=== PATIENT | male | born 1970 | race Caucasian/White ===

== ENCOUNTER 2021-01-21 09:23 | Inpatient (IN) ==
[2021-01-21] MEDS ORDERED: Isovue-370 500 ML BOTTLE IVP ONE ×2 (09:33→09:37)
[2021-01-21] MEDS ORDERED: *HR* FentaNYL (PF) 100 MCG/2 ML VIAL IVP ONE ×2 (09:33→12:41)
[2021-01-21] MEDS ORDERED: Ondansetron 4 MG/2 ML VIAL IVP ONE (09:33)
[2021-01-21 09:53] LABS: Basophils % 0.3 %; Eosinophils % 0.3 %; Hematocrit 39.1 % (37.5-50.1); Hemoglobin 13.6 g/dL (12.9-16.9); Immature Granulocytes % 0.4 % (0-4); Lymphocytes # 1.7 K/mcL (0.6-4.6); Lymphocytes % 13.9 %; Mean Corpuscular HGB Conc 34.8 g/dL (31.6-35.5); Mean Corpuscular Hemoglobin 30.4 pg (28.0-33.3); Mean Corpuscular Volume 87.3 fL (83.0-100.0); Mean Platelet Volume 9.4 fL (9.4-12.4); Monocytes # 0.3 K/mcL (0.0-1.3); Monocytes % 2.5 %; Neutrophils # 9.8 K/mcL (1.6-8.9); Platelet Count 275 K/mcL (140-400); Red Blood Count 4.48 M/mcL (4.19-5.50); Red Cell Distribution Width 13.7 % (11.5-14.5); Segmented Neutrophils % 82.6 %; White Blood Count 11.9 K/mcL (4.3-11.1)
[2021-01-21] MEDS ORDERED: Haloperidol Lactate 5 MG/ML VIAL IVP ONE (10:00)
[2021-01-21 10:08] LABS: Alanine Aminotransferase 27 Units/L (7-52); Albumin 4.1 g/dL (3.5-5.7); Albumin/Globulin Ratio 1.1 (1.1-2.2); Alkaline Phosphatase 46 Units/L (34-104); Aspartate Amino Transferase 25 Units/L (13-39); BUN/Creatinine Ratio 17 (6-26); Bilirubin,Total 0.5 mg/dL (0.3-1.0); Blood Urea Nitrogen 17 mg/dL (6-20); Calcium 9.6 mg/dL (8.6-10.3); Carbon Dioxide 27 mEq/L (23-29); Chloride 102 mEq/L (98-107); Globulin 3.7 g/dL (2.4-3.5); Glucose 231 mg/dL (70-105); Lipase 67 Units/L (11-82); Osmolality,Calculated 295 (280-300); Potassium 2.7 mEq/L (3.5-5.1); Sodium 138 mEq/L (136-145); Total Protein 7.8 g/dL (6.4-8.9); eGFR For African Americans > 60 (> 60); eGFR For Non-African Americans > 60 (> 60)
[2021-01-21 11:41] LABS: Bilirubin,Urine Negative (Negative); Blood,Urine Negative (Negative); Clarity,Urine Clear (Clear); Color,Urine Light-Yellow (Yellow); Glucose,Urine (UA) 300 mg/dL (Normal); Ketones,Urine Negative (Negative); Leukocyte Esterase,Urine Negative (Negative); Mucus,Urine Few per lpf (None-Few); Nitrite,Urine Negative (Negative); PH,Urine 6.5 pH Units (5.0-8.0); Protein,Urine Negative (Neg-Trace); RBC,Urine 0-3 per hpf (0-3); Specific Gravity,Urine > 1.030 (1.010-1.025); Urobilinogen,Urine Normal (Normal); WBC,Urine 0-3 per hpf (0-3)
[2021-01-21] MEDS ORDERED: Potassium Effervescent 25 MEQ TABLET.EFF PO ONE (12:12)
[2021-01-21] MEDS ORDERED: 0.9 % Sodium Chloride 1,000 ML IVC SCH (12:45)
[2021-01-21 12:59] LABS: Magnesium 1.9 mg/dL (1.6-2.6)
[2021-01-21 13:00] LABS: Troponin I < 0.03 ng/mL (< 0.04)
[2021-01-21] MEDS ORDERED: Bisacodyl 10 MG RECTAL SUPPOSITORY RC PRN (13:28)
[2021-01-21] MEDS ORDERED: Naloxone 0.4 MG/ML INJ IVP PRN (13:33)
[2021-01-21] MEDS ORDERED: 0.9 % Sodium Chloride 2,000 ML IVC SCH (13:38)
[2021-01-21] MEDS ORDERED: Dextrose Gel 15 GM/37.5 ML TUBE PO PRN ×2 (13:43)
[2021-01-21] MEDS ORDERED: *HR* Dextrose 50 % in Water (Syg) 50 ML SYRINGE IVP PRN (13:43)
[2021-01-21] MEDS ORDERED: D5% in Water 1,000 ML IVC PRN (13:43)
[2021-01-21] MEDS: MetroNIDAZOLE 500 MG/100 ML 500 MG/100 ML BAG IVPB SCH (15:21)
[2021-01-21 17:01] LABS: Estimated Average Glucose 97 mg/dl
[2021-01-21] MEDS: Ketorolac 15 MG/ML VIAL IVP SCH (17:26)
[2021-01-21] MEDS: *HR* Heparin 5,000 UNIT/ML VIAL SQ SCH (17:26)
[2021-01-21] MEDS: Insulin LISPRO 300 UNITS/3 ML VIAL SUBQ SCH (17:28)
[2021-01-21 18:58] LABS: BUN/Creatinine Ratio 21 (6-26); Blood Urea Nitrogen 18 mg/dL (6-20); Calcium 9.8 mg/dL (8.6-10.3); Carbon Dioxide 22 mEq/L (23-29); Chloride 103 mEq/L (98-107); Glucose 176 mg/dL (70-105); Osmolality,Calculated 284 (280-300); Potassium 4.3 mEq/L (3.5-5.1); Sodium 134 mEq/L (136-145); eGFR For African Americans > 60 (> 60); eGFR For Non-African Americans > 60 (> 60)
[2021-01-21] MEDS: 0.9 % Sodium Chloride 2,000 ML IVC SCH (19:02)
[2021-01-22] MEDS: MetroNIDAZOLE 500 MG/100 ML 500 MG/100 ML BAG IVPB SCH ×2 (00:12→07:55)
[2021-01-22] MEDS: Ketorolac 15 MG/ML VIAL IVP SCH ×4 (00:16→16:57)
[2021-01-22] MEDS: Insulin LISPRO 300 UNITS/3 ML VIAL SUBQ SCH ×4 (00:19→17:52)
[2021-01-22 03:32] LABS: Basophils % 0.1 %; Hematocrit 46.1 % (37.5-50.1); Immature Granulocytes % 0.5 % (0-4); Lymphocytes # 1.9 K/mcL (0.6-4.6); Lymphocytes % 8.8 %; Mean Corpuscular HGB Conc 33.4 g/dL (31.6-35.5); Mean Corpuscular Hemoglobin 28.9 pg (28.0-33.3); Mean Corpuscular Volume 86.7 fL (83.0-100.0); Mean Platelet Volume 9.7 fL (9.4-12.4); Monocytes # 0.9 K/mcL (0.0-1.3); Monocytes % 4.2 %; Neutrophils # 18.2 K/mcL (1.6-8.9); Platelet Count 346 K/mcL (140-400); Red Blood Count 5.32 M/mcL (4.19-5.50); Segmented Neutrophils % 86.4 %; White Blood Count 21.1 K/mcL (4.3-11.1)
[2021-01-22 03:33] LABS: Hemoglobin 15.4 g/dL (12.9-16.9)
[2021-01-22 03:54] LABS: BUN/Creatinine Ratio 20 (6-26); Blood Urea Nitrogen 25 mg/dL (6-20); Calcium 9.9 mg/dL (8.6-10.3); Carbon Dioxide 22 mEq/L (23-29); Chloride 102 mEq/L (98-107); Glucose 139 mg/dL (70-105); Magnesium 2.3 mg/dL (1.6-2.6); Osmolality,Calculated 287 (280-300); Potassium 4.1 mEq/L (3.5-5.1); Sodium 135 mEq/L (136-145); eGFR For African Americans > 60 (> 60); eGFR For Non-African Americans > 60 (> 60)
[2021-01-22] MEDS: *HR* Heparin 5,000 UNIT/ML VIAL SQ SCH ×2 (05:50→17:01)
[2021-01-22] MEDS: 0.9 % Sodium Chloride 2,000 ML IVC SCH (05:53)
[2021-01-22] MEDS: Pantoprazole 40 MG VIAL IVP SCH (07:56)
[2021-01-22 09:33] LABS: Hemoglobin 14.7 g/dL (12.9-16.9); Mean Platelet Volume 9.4 fL (9.4-12.4); Red Cell Distribution Width 14.3 % (11.5-14.5)
[2021-01-22 09:34] LABS: Hematocrit 42.9 % (37.5-50.1); Mean Corpuscular HGB Conc 34.3 g/dL (31.6-35.5); Mean Corpuscular Hemoglobin 29.6 pg (28.0-33.3); Mean Corpuscular Volume 86.5 fL (83.0-100.0); Platelet Count 306 K/mcL (140-400); Red Blood Count 4.96 M/mcL (4.19-5.50); White Blood Count 24.8 K/mcL (4.3-11.1)
[2021-01-22 10:20] LABS: BUN/Creatinine Ratio 22 (6-26); Blood Urea Nitrogen 30 mg/dL (6-20); Calcium 9.8 mg/dL (8.6-10.3); Carbon Dioxide 24 mEq/L (23-29); Chloride 103 mEq/L (98-107); Glucose 119 mg/dL (70-105); Osmolality,Calculated 289 (280-300); Potassium 4.5 mEq/L (3.5-5.1); Sodium 136 mEq/L (136-145); eGFR For African Americans > 60 (> 60); eGFR For Non-African Americans 57 (> 60)
[2021-01-22] MEDS ORDERED: Vancomycin 1,250 MG/262.5 ML IV.SOLN IVPB SCH (14:00)
[2021-01-22] MEDS: amLODIPine 5 MG TABLET PO SCH (15:47)
[2021-01-22] MEDS: Piperacillin/Tazobactam 3.375 GM in 0.9 % Sodium Chloride Mini Bag 100 ML IVPB SCH ×2 (15:48→23:13)
[2021-01-22] MEDS: *HR* Buprenorphine HCl 8 MG TAB.SUBL SL SCH (16:57)
[2021-01-22] MEDS ORDERED: Ketorolac 30 MG/ML VIAL IVP ONE (20:13)
[2021-01-23] MEDS: Insulin LISPRO 300 UNITS/3 ML VIAL SUBQ SCH ×4 (00:34→16:22)
[2021-01-23] MEDS ORDERED: Ketorolac 15 MG/ML VIAL IVP ONE (05:52)
[2021-01-23 05:59] LABS: Hematocrit 37.6 % (37.5-50.1); Mean Corpuscular HGB Conc 32.4 g/dL (31.6-35.5); Mean Corpuscular Hemoglobin 28.9 pg (28.0-33.3); Mean Corpuscular Volume 89.1 fL (83.0-100.0); Mean Platelet Volume 9.7 fL (9.4-12.4); Platelet Count 219 K/mcL (140-400); Red Blood Count 4.22 M/mcL (4.19-5.50); Red Cell Distribution Width 14.6 % (11.5-14.5); White Blood Count 20.1 K/mcL (4.3-11.1)
[2021-01-23] MEDS: 0.9 % Sodium Chloride 2,000 ML IVC SCH (06:00)
[2021-01-23] MEDS: Ondansetron 4 MG/2 ML VIAL IVP PRN ×2 (06:00→17:56)
[2021-01-23 06:05] LABS: Hemoglobin 12.2 g/dL (12.9-16.9)
[2021-01-23 06:18] LABS: Alanine Aminotransferase 14 Units/L (7-52); Albumin 3.7 g/dL (3.5-5.7); Albumin/Globulin Ratio 1.2 (1.1-2.2); Alkaline Phosphatase 32 Units/L (34-104); Aspartate Amino Transferase 14 Units/L (13-39); BUN/Creatinine Ratio 31 (6-26); Bilirubin,Total 1.1 mg/dL (0.3-1.0); Blood Urea Nitrogen 38 mg/dL (6-20); Calcium 9.2 mg/dL (8.6-10.3); Carbon Dioxide 25 mEq/L (23-29); Chloride 104 mEq/L (98-107); Glucose 99 mg/dL (70-105); Osmolality,Calculated 293 (280-300); Potassium 4.2 mEq/L (3.5-5.1); Sodium 137 mEq/L (136-145); Total Protein 6.7 g/dL (6.4-8.9); eGFR For African Americans > 60 (> 60); eGFR For Non-African Americans > 60 (> 60)
[2021-01-23] MEDS ORDERED: *HR* Promethazine 25 MG/ML VIAL IM ONE (08:44)
[2021-01-23] MEDS: Pantoprazole 40 MG VIAL IVP SCH (08:54)
[2021-01-23] MEDS ORDERED: Tetracaine/Benzocaine/Butamben 1 SPRAY AEROSOL MM ONE (09:58)
[2021-01-23] MEDS: Piperacillin/Tazobactam 3.375 GM in 0.9 % Sodium Chloride Mini Bag 100 ML IVPB SCH ×2 (10:06→16:21)
[2021-01-23] MEDS: *HR* Buprenorphine HCl 8 MG TAB.SUBL SL SCH (10:06)
[2021-01-23] MEDS: MetroNIDAZOLE 500 MG/100 ML 500 MG/100 ML BAG IVPB SCH ×2 (10:06→16:21)
[2021-01-23] MEDS: amLODIPine 5 MG TABLET PO SCH (10:06)
[2021-01-23] MEDS: 0.9 % Sodium Chloride 1,000 ML IVC SCH ×2 (10:07→23:10)
[2021-01-23] MEDS: *HR* Heparin 5,000 UNIT/ML VIAL SQ SCH (16:21)
[2021-01-24] MEDS: MetroNIDAZOLE 500 MG/100 ML 500 MG/100 ML BAG IVPB SCH ×3 (00:15→14:52)
[2021-01-24] MEDS: Piperacillin/Tazobactam 3.375 GM in 0.9 % Sodium Chloride Mini Bag 100 ML IVPB SCH ×4 (00:16→23:54)
[2021-01-24] MEDS: Insulin LISPRO 300 UNITS/3 ML VIAL SUBQ SCH ×4 (03:15→16:18)
[2021-01-24] MEDS: *HR* Heparin 5,000 UNIT/ML VIAL SQ SCH ×2 (05:23→16:45)
[2021-01-24 06:50] LABS: Hemoglobin 11.4 g/dL (12.9-16.9); Mean Corpuscular HGB Conc 32.6 g/dL (31.6-35.5); Mean Corpuscular Hemoglobin 29.5 pg (28.0-33.3); Mean Corpuscular Volume 90.7 fL (83.0-100.0); Mean Platelet Volume 9.5 fL (9.4-12.4); Platelet Count 198 K/mcL (140-400); Red Blood Count 3.86 M/mcL (4.19-5.50); Red Cell Distribution Width 14.6 % (11.5-14.5); White Blood Count 14.5 K/mcL (4.3-11.1)
[2021-01-24 07:03] LABS: Magnesium 2.2 mg/dL (1.6-2.6); Phosphorous 2.9 mg/dL (2.7-4.5)
[2021-01-24 07:09] LABS: Alanine Aminotransferase 14 Units/L (7-52); Albumin 3.7 g/dL (3.5-5.7); Albumin/Globulin Ratio 1.2 (1.1-2.2); Alkaline Phosphatase 30 Units/L (34-104); Aspartate Amino Transferase 14 Units/L (13-39); BUN/Creatinine Ratio 33 (6-26); Bilirubin,Total 0.6 mg/dL (0.3-1.0); Blood Urea Nitrogen 32 mg/dL (6-20); Calcium 8.9 mg/dL (8.6-10.3); Carbon Dioxide 26 mEq/L (23-29); Chloride 107 mEq/L (98-107); Glucose 90 mg/dL (70-105); Osmolality,Calculated 296 (280-300); Potassium 3.6 mEq/L (3.5-5.1); Sodium 140 mEq/L (136-145); Total Protein 6.7 g/dL (6.4-8.9); eGFR For African Americans > 60 (> 60); eGFR For Non-African Americans > 60 (> 60)
[2021-01-24] MEDS: Pantoprazole 40 MG VIAL IVP SCH (07:56)
[2021-01-24] MEDS: amLODIPine 5 MG TABLET PO SCH ×2 (07:57→10:46)
[2021-01-24] MEDS: *HR* Buprenorphine HCl 8 MG TAB.SUBL SL SCH (14:52)
[2021-01-24] MEDS: 0.9 % Sodium Chloride 1,000 ML IVC SCH (14:52)
[2021-01-24] MEDS: Ondansetron 4 MG/2 ML VIAL IVP PRN (22:13)
[2021-01-25] MEDS: Insulin LISPRO 300 UNITS/3 ML VIAL SUBQ SCH ×3 (00:04→14:59)
[2021-01-25] MEDS: MetroNIDAZOLE 500 MG/100 ML 500 MG/100 ML BAG IVPB SCH ×2 (00:04→09:31)
[2021-01-25 01:23] LABS: Basophils % 0.2 %; Eosinophils # 0.2 K/mcL (0.0-0.6); Eosinophils % 1.5 %; Hematocrit 34.1 % (37.5-50.1); Hemoglobin 11.1 g/dL (12.9-16.9); Immature Granulocytes % 0.3 % (0-4); Lymphocytes # 3.1 K/mcL (0.6-4.6); Lymphocytes % 25.3 %; Mean Corpuscular HGB Conc 32.6 g/dL (31.6-35.5); Mean Corpuscular Hemoglobin 29.3 pg (28.0-33.3); Mean Platelet Volume 9.6 fL (9.4-12.4); Monocytes # 0.7 K/mcL (0.0-1.3); Monocytes % 5.4 %; Neutrophils # 8.2 K/mcL (1.6-8.9); Platelet Count 182 K/mcL (140-400); Red Blood Count 3.79 M/mcL (4.19-5.50); Segmented Neutrophils % 67.3 %; White Blood Count 12.2 K/mcL (4.3-11.1)
[2021-01-25] MEDS ORDERED: Ketorolac 30 MG/ML VIAL IVP ONE (02:32)
[2021-01-25] MEDS: Ondansetron 4 MG/2 ML VIAL IVP PRN (06:49)
[2021-01-25] MEDS: *HR* Heparin 5,000 UNIT/ML VIAL SQ SCH (06:49)
[2021-01-25] MEDS: *HR* Buprenorphine HCl 8 MG TAB.SUBL SL SCH (09:29)
[2021-01-25] MEDS: Pantoprazole 40 MG VIAL IVP SCH (09:29)
[2021-01-25] MEDS: Piperacillin/Tazobactam 3.375 GM in 0.9 % Sodium Chloride Mini Bag 100 ML IVPB SCH (09:29)
[2021-01-25] MEDS: amLODIPine 5 MG TABLET PO SCH (09:29)
[2021-01-25 10:44] VITALS: PULSE 89; TEMP 98.9; O2SAT 90
[2021-01-25 12:57] VITALS: BP 130/98
[2021-01-25] MEDS: metroNIDAZOLE 500 MG TABLET PO SCH ×2 (14:58→15:00)
== END 2021-01-25 16:44 | disposition home or self-care (01) | DRG 247 ==
LOC: EMEROOARM 09:23 → 3BNU 09:23 → SUATTDRO 12:48 → 3BNU 14:30
PROVIDERS: ADMIT General Practice; ATTEND Internal Medicine